=== PATIENT | female | born 1940 | race Caucasian/White ===

== ENCOUNTER → 2020-02-17 09:00 | Outpatient (BNVA) | payer MEDICARE, SELFPAY | PROVIDERS: Family Provider Nurse Practitioner Family; PCP Nurse Practitioner Family; Visit Provider Nurse Practitioner Family | DX: I10 Essential (primary) hypertension (principal); F41.9 Anxiety disorder, unspecified; Z78.9 Other specified health status; E78.5 Hyperlipidemia, unspecified | CPT/HCPCS: 80053; 80061; 84439; 84443 ==

== ENCOUNTER 2020-05-09 06:00 | Outpatient (RCR) | payer MEDICARE, SELFPAY | END 2020-05-30 23:59 | disposition home or self-care (01) | LOC: GPT 06:00 | PROVIDERS: PCP Nurse Practitioner Family; Referring Provider Nurse Practitioner Family; Visit Provider Nurse Practitioner Family | DX: M54.9 Dorsalgia, unspecified (principal) | CPT/HCPCS: 97032; 97110; 97112; 97140; 97161; 97530 ==

== ENCOUNTER 2020-05-31 06:00 | Outpatient (RCR) | payer MEDICARE, SELFPAY | END 2020-06-30 23:59 | disposition home or self-care (01) | LOC: GPT 06:00 | PROVIDERS: PCP Nurse Practitioner Family; Referring Provider Nurse Practitioner Family; Visit Provider Nurse Practitioner Family | DX: M54.9 Dorsalgia, unspecified (principal) | CPT/HCPCS: 97110; 97530 ==

== ENCOUNTER → 2020-08-01 08:45 | Outpatient (BNVA) | payer MEDICARE, SELFPAY | PROVIDERS: PCP Nurse Practitioner Family; Visit Provider Dermatology | DX: Z01.812 Encounter for preprocedural laboratory examination (principal) | CPT/HCPCS: 87635 ==

== ENCOUNTER → 2021-03-20 16:22 | Outpatient (BNVA) | payer MEDICARE, SELFPAY | PROVIDERS: PCP Nurse Practitioner Family; Visit Provider Nurse Practitioner Family | DX: E78.5 Hyperlipidemia, unspecified (principal); I10 Essential (primary) hypertension; Z68.26 Body mass index [BMI] 26.0-26.9, adult; F41.9 Anxiety disorder, unspecified | CPT/HCPCS: 80053; 80061; 83735; 84439; 84443; 85025 ==

== ENCOUNTER → 2021-09-12 10:07 | Outpatient (BNVA) | payer MEDICARE, SELFPAY | PROVIDERS: PCP Nurse Practitioner Family; Visit Provider Nurse Practitioner Family | DX: I10 Essential (primary) hypertension (principal); E78.5 Hyperlipidemia, unspecified | CPT/HCPCS: 80053; 80061 ==

== ENCOUNTER → 2022-09-02 08:44 | Outpatient (BNVA) | payer MEDICARE, SELFPAY | PROVIDERS: PCP Nurse Practitioner Family; Visit Provider Nurse Practitioner Family | DX: E78.5 Hyperlipidemia, unspecified (principal); I10 Essential (primary) hypertension | CPT/HCPCS: 80053; 80061; 84439; 84443; 85025 ==

== ENCOUNTER 2022-09-12 12:29 | Outpatient (CLI) | payer MEDICARE, SELFPAY ==
--- NOTE | 2022-09-12 13:00 | XR_ITS ---
WS: [id number] SCREENING DEXA SCAN [facility] (formerly known as [facility]) CLINICAL INFORMATION: Z78.0 - Asymptomatic menopausal state COMPARISON: 2019 FINDINGS: LEFT forearm bone mineral density 0.621 with a T score of -2.9 and Z score of -0.1 Left femoral neck bone mineral density measures 0.871 g/cm2. This corresponds to a T score of -1.1 an d Z score of 0.9. Right femoral neck bone mineral density measures 0.817 g/cm2. This corresponds to a T score -1.5of an d Z score of 0.5. Mean femoral neck bone mineral density measures 0.844 g/cm2. This corresponds to a T score of -1.3 an d Z score of 0.7. XR/XR DEXA axial skeleton* [id number] IMPRESSION: Osteoporosis LEFT forearm. Osteopenia femoral necks. Patient's FRAX calculated 10 year probability for major osteoporotic fracture i s 15.5 % and osteoporotic hip fracture is 4.7%. Bone mineral density in the LEFT forearm has decreased -14.6% and increased 0.5 % in the femurs since 2019.
== END 2022-09-12 12:30 | disposition home or self-care (01) ==
LOC: RAD 12:30
PROVIDERS: PCP Nurse Practitioner Family; Visit Provider Nurse Practitioner Family
DX: Z78.0 Asymptomatic menopausal state (principal); M81.0 Age-related osteoporosis without current pathological fracture
CPT/HCPCS: 77080

== ENCOUNTER → 2022-09-22 15:41 | Outpatient (BNVA) | payer MEDICARE, SELFPAY | PROVIDERS: PCP Nurse Practitioner Family; Visit Provider Nurse Practitioner Family | DX: M81.0 Age-related osteoporosis without current pathological fracture (principal) | CPT/HCPCS: 80053 ==

== ENCOUNTER → 2023-03-16 15:32 | Outpatient (BNVA) | payer MEDICARE, SELFPAY | PROVIDERS: PCP Nurse Practitioner Family; Visit Provider Nurse Practitioner Family | DX: M81.0 Age-related osteoporosis without current pathological fracture (principal) | CPT/HCPCS: 82310 ==

== ENCOUNTER → 2023-09-17 08:00 | Outpatient (BNVA) | payer MEDICARE, SELFPAY | PROVIDERS: PCP Nurse Practitioner Family; Visit Provider Nurse Practitioner Family | DX: M81.0 Age-related osteoporosis without current pathological fracture (principal) | CPT/HCPCS: 82310 ==

== ENCOUNTER 2023-10-06 06:00 | Outpatient (RCR) | payer MEDICARE, SELFPAY | END 2023-10-29 23:59 | disposition home or self-care (01) | LOC: GPT 06:00 | PROVIDERS: Visit Provider Orthopaedic Surgery | DX: Z47.1 Aftercare following joint replacement surgery (principal); Z96.651 Presence of right artificial knee joint | CPT/HCPCS: 97110; 97112; 97161; 97530 ==

== ENCOUNTER 2023-10-30 06:00 | Outpatient (RCR) | payer MEDICARE, SELFPAY | END 2023-11-29 23:59 | disposition home or self-care (01) | LOC: GPT 06:00 | PROVIDERS: Visit Provider Orthopaedic Surgery | DX: Z47.1 Aftercare following joint replacement surgery (principal); Z96.651 Presence of right artificial knee joint | CPT/HCPCS: 97110; 97112; 97140; 97164; 97530 ==

== ENCOUNTER 2023-11-30 06:00 | Outpatient (RCR) | payer MEDICARE, SELFPAY | END 2023-12-29 23:59 | disposition home or self-care (01) | LOC: GPT 06:00 | PROVIDERS: Visit Provider Orthopaedic Surgery | DX: Z47.1 Aftercare following joint replacement surgery (principal); Z96.651 Presence of right artificial knee joint | CPT/HCPCS: 97110; 97164 ==

== ENCOUNTER 2023-12-30 06:00 | Outpatient (RCR) | payer MEDICARE, SELFPAY | END 2024-01-29 23:59 | disposition home or self-care (01) | LOC: GPT 06:00 | PROVIDERS: Visit Provider Orthopaedic Surgery | DX: Z47.1 Aftercare following joint replacement surgery (principal); Z96.651 Presence of right artificial knee joint | CPT/HCPCS: 97110 ==

== ENCOUNTER → 2024-03-17 09:00 | Outpatient (BNVA) | payer MEDICARE, SELFPAY | PROVIDERS: Visit Provider Nurse Practitioner Family | DX: M81.0 Age-related osteoporosis without current pathological fracture (principal) | CPT/HCPCS: 82310 ==

== ENCOUNTER 2024-05-01 06:00 | Outpatient (RCR) | payer MEDICARE, SELFPAY | END 2024-05-30 23:59 | disposition home or self-care (01) | LOC: GPT 06:00 | PROVIDERS: PCP Nurse Practitioner Family; Visit Provider Orthopaedic Surgery | DX: Z47.1 Aftercare following joint replacement surgery (principal); Z96.651 Presence of right artificial knee joint | CPT/HCPCS: 97110; 97140; 97161; 97530 ==

== ENCOUNTER 2024-05-31 06:00 | Outpatient (RCR) | payer MEDICARE, SELFPAY | END 2024-06-30 23:59 | disposition home or self-care (01) | LOC: GPT 06:00 | PROVIDERS: PCP Nurse Practitioner Family; Visit Provider Orthopaedic Surgery | DX: Z47.1 Aftercare following joint replacement surgery (principal); Z96.651 Presence of right artificial knee joint | CPT/HCPCS: 97110; 97164; 97530 ==

== ENCOUNTER 2024-07-01 06:00 | Outpatient (RCR) | payer MEDICARE, SELFPAY | END 2024-07-06 23:59 | disposition home or self-care (01) | LOC: GPT 06:00 | PROVIDERS: PCP Nurse Practitioner Family; Visit Provider Orthopaedic Surgery | DX: Z47.1 Aftercare following joint replacement surgery (principal); Z96.651 Presence of right artificial knee joint | CPT/HCPCS: 97110; 97140; 97530 ==

== ENCOUNTER → 2024-09-20 10:04 | Outpatient (BNVA) | payer MEDICARE, SELFPAY | PROVIDERS: PCP Nurse Practitioner Family; Visit Provider Nurse Practitioner Family | DX: I10 Essential (primary) hypertension (principal) | CPT/HCPCS: 80053; 80061; 85025 ==

== ENCOUNTER 2024-10-17 14:01 | Outpatient (CLI) | payer MEDICARE, SELFPAY ==
--- NOTE | 2024-10-17 14:00 | XR_ITS ---
WS: [id number] SCREENING DEXA SCAN [place] CLINICAL INFORMATION: Z78.0 - Asymptomatic menopausal state COMPARISON: 2022 FINDINGS: The LEFT forearm bone mineral density measures 0.714. This corresponds to a T score score of -1.8 and Z score of 1.2. Left femoral neck bone mineral density measures 0.872 g/cm2. This corresponds to a T score of -1.1 and Z score of 1.1. Right femoral neck bone mineral density measures 0.850 g/cm2. This corresponds to a T score -1.3of and Z score of 0.9. Mean femoral neck bone mineral density measures 0.861 g/cm2. This corresponds to a T score of -1.2 and Z score of 1.0. XR/XR DEXA axial skeleton* [id number] IMPRESSION: Osteopenia LEFT forearm. Osteopenia femoral necks. Patient's FRAX calculated 10 year probability for major osteoporotic fracture i s 15.0% and osteoporotic hip fracture is 4.4%. Bone density LEFT forearm increase 15.0% Bone density femoral necks increased 2.0%
== END 2024-10-17 14:02 | disposition home or self-care (01) ==
PROVIDERS: PCP Nurse Practitioner Family; Visit Provider Nurse Practitioner Family
DX: Z78.0 Asymptomatic menopausal state (principal); M85.89 Other specified disorders of bone density and structure, multiple sites
CPT/HCPCS: 77080

== ENCOUNTER → 2025-03-22 09:15 | Outpatient (BNVA) | payer MEDICARE, SELFPAY | PROVIDERS: PCP Nurse Practitioner Family; Visit Provider Nurse Practitioner Family | DX: M81.0 Age-related osteoporosis without current pathological fracture (principal) | CPT/HCPCS: 82310 ==

== ENCOUNTER → 2025-03-29 10:30 | Outpatient (BNVA) | payer MEDICARE, SELFPAY | PROVIDERS: PCP Nurse Practitioner Family; Visit Provider Nurse Practitioner Family | DX: I10 Essential (primary) hypertension (principal); Z86.2 Personal history of diseases of the blood and blood-forming organs and certain disorders involving the immune mechanism | CPT/HCPCS: 80053; 80061; 82728; 83550; 85025 ==